=== PATIENT | female | born 1955 | race Caucasian/White ===

== ENCOUNTER 2017-09-02 09:23 | Outpatient (CLI) | payer BC, OTHER ==
--- NOTE | 2017-09-02 13:35 | MMO ---
BILATERAL SCREENING MAMMOGRAM: HISTORY: Screening. COMPARISON: 07/03/15, 06/22/14. FINDINGS: Bilateral screening CC and MLO mammograms were performed with computer-aided detection. There are scattered fibroglandular densities. No suspicious mass, architectural distortion, or micro calcifications. IMPRESSION: BI-RADS category 2, benign findings. Continued screening is recommended. BIRADS 2: Benign Finding(s) Routine annual screening mammography (for women over age 40) POS: [facility]
== END 2017-09-02 09:24 | disposition home or self-care (01) ==
LOC: SCSMAMMO 09:23
PROVIDERS: ATTEND Family Medicine
DX: Z12.31 Encounter for screening mammogram for malignant neoplasm of breast (principal)
CPT/HCPCS: 77067

== ENCOUNTER 2022-05-23 08:44 | Outpatient (CLI) | payer BC | END 2022-05-23 08:45 | disposition home or self-care (01) | LOC: SCSRAD 08:44 | PROVIDERS: ATTEND Family Medicine Sports Medicine | DX: S93.401A Sprain of unspecified ligament of right ankle, initial encounter (principal) ==